=== PATIENT | male | born 1995 | race Caucasian/White ===

== ENCOUNTER 2021-04-07 08:28 | Emergency (ER) | payer BC ==
[2021-04-07 08:44] VITALS: BP 114/80; PULSE 76; TEMP 97.3; BMI 24.3
[2021-04-07] MEDS ORDERED: ACETAMINOPHEN 500 MG TABLET (FP) PO ONE (10:39)
[2021-04-07] MEDS ORDERED: ACETAMINOPHEN 500 MG TABLET (FP) ONE (10:42)
== END 2021-04-07 11:04 | disposition home or self-care (01) ==
LOC: JER 08:28
DX: B34.9 Viral infection, unspecified (principal)
CPT/HCPCS: 71046-TC-FY; 87804; 93005; 93010; 99284-25; C9803; U0003; U0005